=== PATIENT | female | born 2000 | race Caucasian/White ===

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

== ENCOUNTER 2018-07-21 22:03 | Emergency (ER) | payer SELFPAY ==
[2018-07-21] MEDS ORDERED: LORazepam 2 MG/ML INJ IVP ONE (22:18)
--- NOTE | 2018-07-21 22:18 | EDPHY ---
H & P Stated Complaint: panic attack, anxiety Time Seen by Provider: 07/21/18 22:11 HPI/ROS: HPI: This is a 18-year-old female who presents with Chief Complaint: Panic attack, anxiety, heart palpitations Location: heart Quality: Palpitations Duration: 3 weeks Signs and Symptoms: + dyspnea, + rapid breathing pattern, no cough, no chest pain, no lower extremity edema, no wheezing, no orthopnea, no paroxysmal nocturnal dyspnea, no fever, no injury/trauma, no hemoptysis, no carpal pedal spasms Timing: Acute, intermittent episodes Severity: Worsening Context: Patient is a student at [employer] and presents with complaints of having panic attacks 2 times per day for the last 3 days accompanied by worsening anxiety over this summer and feeling like her heart is racing. She has an apple watch that shows during her panic attack that her heart race in the 130s. She reports that after the panic attack resolved her heart rate does go down to a normal value in the 90s. She has a history of parathyroidectomy 6 months ago. She reports that her calcium was normal 1 month ago. No healthcare insurance and does not have a primary care provider. Modifying Factors: None Comment: ROS: A comprehensive 10 system review of systems is otherwise negative aside from elements mentioned in the history of present illness. MEDICAL/SURGICAL/SOCIAL HISTORY: Medical history: Generally healthy. Does not take any regular medications. LMP 2-3 weeks ago Surgical history: Parathyroidectomy Social history: Originally from [place]. Student at [employer]. CONSTITUTIONAL: Slightly anxious well-appearing young adult white female, awake and alert, no obvious distress HEENT: Atraumatic and normocephalic, PERRL, EOMI. Nares patent; no rhinorrhea; no nasal mucosal edema. Tympanic membranes clear. Oropharynx clear, no exudate and moist pink mucosa. Airway patent. No lymphadenopathy. Scar anterior neck consistent with parathyroidectomy. No meningismus. Cardiovascular: Normal S1/S2, regular rate, regular rhythm, without murmur rub or gallop. PULMONARY/CHEST: Symmetrical and nontender. Clear to auscultation bilaterally. Good air movement. No accessory muscle usage. ABDOMEN: Soft, nondistended, nontender, no rebound, no guarding, no peritoneal signs, no masses or organomegaly. No CVAT. EXTREMITIES: 2/2 pulses, strength 5/5, no deformities, no clubbing, no cyanosis or edema. NEUROLOGICAL: no focal neuro deficits. GCS 15. SKIN: Warm and dry, no erythema. no rash. Good capillary refill. Source: Patient Exam Limitations: No limitations - Personal History LMP (Females 10-55): 15-21 Days Ago Current Tetanus Diphtheria and Acellular Pertussis (TDAP): Yes - Medical/Surgical History Hx Asthma: No Hx Chronic Respiratory Disease: No Hx Diabetes: No Hx Cardiac Disease: No Hx Renal Disease: No Hx Cirrhosis: No Hx Alcoholism: No Hx HIV/AIDS: No Hx Splenectomy or Spleen Trauma: No Other PMH: parathyroiectomy 02/21 - Social History Smoking Status: Never smoked Constitutional: Initial Vital Signs Temperature (C) 36.8 C 07/21/18 22:05 Heart Rate 91 07/21/18 22:05 Respiratory Rate 20 07/21/18 22:05 Blood Pressure 123/71 H 07/21/18 22:05 O2 Sat (%) 98 07/21/18 22:05 O2 Delivery Mode Room Air Allergies/Adverse Reactions: No Known Allergies Allergy (Unverified 07/21/18 22:05) Home Medications: Medication Instructions Recorded NK [No Known Home Meds] 01/13/17 Medical Decision Making - Diagnostics EKG Interpretation: 12 lead EKG: Indication: Palpitations Rhythm: Sinus tachycardia rate of 102 beats per minute [place]: Normal Intervals: Normal QRS: Normal ST segments: Normal INTERPRETATION: no acute ischemic changes, no arrhythmias The 12 lead EKG was interpreted by myself and with attending. ED Course/Re-evaluation: Vital signs reviewed and stable upon arrival. EKG shows mild sinus tachycardia with a rate of 102 beats per minute. Laboratory studies ordered. Given 1 L normal saline and patient politely refused Ativan 2255: Labs reviewed. No signs of leukocytosis/anemia/platelet dysfunction/CATY/ elevated LFTs/electrolyte imbalance/VTE//elevated calcium. This patient was seen under the supervision of my secondary supervising physician. I evaluated care for this patient independently. Discussed this patient with Dr. Grove. Differential Diagnosis: Differential diagnosis includes but is not limited to hyperthyroidism, hypercalcemia, anxiety, arrhythmias, pericarditis, pulmonary embolism. - Data Points Laboratory Results: Laboratory Results 07/21/18 22:31 07/21/18 22:31 1007/21/18 07/21/18 Unknown 22:31 22:31 WBC RBC Hgb Hct MCV MCH MCHC RDW Plt Count MPV Neut % (Auto) Lymph % (Auto) [place] % (Auto) Eos % (Auto) Baso % (Auto) Nucleat RBC Rel Count Absolute Neuts (auto) Absolute Lymphs (auto) Absolute Monos (auto) Absolute Eos (auto) Absolute Basos (auto) Absolute Nucleated RBC Immature Gran % Immature Gran # D-Dimer < 0.27 ug/mLFEU ug/mLFEU (0.00-0.50) Sodium 141 mEq/L mEq/L (135-145) Potassium 3.7 mEq/L mEq/L (3.3-5.0) Chloride 106 mEq/L mEq/L (97-110) Carbon Dioxide 23 mEq/l mEq/l (22-31) Anion Gap 12 mEq/L mEq/L (6-14) BUN 19 mg/dL mg/dL (7-23) Creatinine 0.8 mg/dL mg/dL (0.6-1.0) Estimated GFR > 60 Glucose 95 mg/dL mg/dL (70-100) Calcium 9.9 mg/dL mg/dL (8.5-10.4) Total Bilirubin 0.5 mg/dL mg/dL (0.1-1.4) AST 22 IU/L IU/L (14-46) ALT 20 IU/L IU/L (9-52) Alkaline Phosphatase 66 IU/L IU/L (38-126) Total Protein 7.4 g/dL g/dL (6.3-8.2) Albumin 4.5 g/dL g/dL (3.5-5.0) TSH Pending Beta HCG, Qual NEGATIVE 07/21/18 22:31 WBC 8.56 10^3/uL 10^3/uL (3.80-9.50) RBC 5.01 10^6/uL 10^6/uL (4.18-5.33) Hgb 14.5 g/dL g/dL (12.6-16.3) Hct 41.9 % % (38.0-47.0) MCV 83.6 fL fL (81.5-99.8) MCH 28.9 pg pg (27.9-34.1) MCHC 34.6 g/dL g/dL (32.4-36.7) RDW 12.2 % % (11.5-15.2) Plt Count 271 10^3/uL 10^3/uL (150-400) MPV 9.7 fL fL (8.7-11.7) Neut % (Auto) 48.7 % % (39.3-74.2) Lymph % (Auto) 41.5 % % (15.0-45.0) [place] % (Auto) 7.4 % % (4.5-13.0) Eos % (Auto) 1.6 % % (0.6-7.6) Baso % (Auto) 0.4 % % (0.3-1.7) Nucleat RBC Rel Count 0.0 % % (0.0-0.2) Absolute Neuts (auto) 4.18 10^3/uL 10^3/uL (1.70-6.50) Absolute Lymphs (auto) 3.55 10^3/uL H 10^3/uL (1.00-3.00) Absolute Monos (auto) 0.63 10^3/uL 10^3/uL (0.30-0.80) Absolute Eos (auto) 0.14 10^3/uL 10^3/uL (0.03-0.40) Absolute Basos (auto) 0.03 10^3/uL 10^3/uL (0.02-0.10) Absolute Nucleated RBC 0.00 10^3/uL 10^3/uL (0-0.01) Immature Gran % 0.4 % % (0.0-1.1) Immature Gran # 0.03 10^3/uL 10^3/uL (0.00-0.10) D-Dimer Sodium Potassium Chloride Carbon Dioxide Anion Gap BUN Creatinine Estimated GFR Glucose Calcium Total Bilirubin AST ALT Alkaline Phosphatase Total Protein Albumin TSH Beta HCG, Qual Medications Given: Discontinued Medications Sodium Chloride (Ns) 1,000 mls @ 0 mls/hr IV EDNOW ONE; Wide Open PRN Reason: Protocol Stop: 07/21/18 22:39 Last Admin: 07/21/18 22:44 Dose: 1,000 mls Departure - Departure Disposition: Home, Routine, Self-Care Clinical Impression: Generalized anxiety disorder with panic attacks, Heart palpitations Condition: Good Instructions: Generalized Anxiety Disorder (ED), Panic Attack (ED), Holter Monitoring (ED) Additional Instructions: Please refrain from using any caffeine. Eliminate any stressors that may exacerbate symptoms. If palpitations continue to persist, follow up to discuss candidacy for Holter monitoring. Establish care at the [facility]. Referrals: [facility],. [Clinic] - As per Instructions [facility] [Outside] - As per Instructions
[2018-07-21] MEDS ORDERED: NS 1,000 ML IV ONE (22:38)
[2018-07-21 22:45] LABS: PLATELET COUNT 271 10^3/uL (150-400)
[2018-07-21 23:05] VITALS: BP 117/77
--- NOTE | 2018-07-23 11:17 | CPEKG ---
Test Reason : OPEN Blood Pressure : / mmHG Vent. Rate : 102 BPM Atrial Rate : 103 BPM P-R Int : 156 ms QRS Dur : 092 ms QT Int : 334 ms P-R-T Axes : 049 056 054 degrees QTc Int : 436 ms Sinus tachycardia Confirmed by Jo Cabral ([id number]) on 07/23/2018 11:17:25 AM Referred By: Confirmed By:Jo Cabral
== END 2018-07-21 23:33 | disposition home or self-care (01) ==
DX: F41.0 Panic disorder [episodic paroxysmal anxiety] (principal); R00.2 Palpitations